=== PATIENT | female | born 1975 | race Caucasian/White ===

== ENCOUNTER 2017-05-19 05:33 | Emergency (ER) | payer OTHER ==
[2017-05-19 06:33] VITALS: BMI 25.9
[2017-05-19 07:37] LABS: BASO # 0.1 #; BASO % 0.6 % (0-2.0); EOS % 0.5 % (0-4.5); LYMPH # 1.4; MCH 28.9 pg (25.7-33.7); MCHC 32.5 g/dl (32.0-36.0); MEAN CELL VOLUME 89.1 fl (80-96); MEAN PLT VOLUME 7.8 fl (7.5-11.1); MONO # 0.7 #; NEUT # 7.1 #; NEUT % 75.8 % (42.8-82.8); PLATELET COUNT 383 K/MM3 (134-434); RDW 15.4 % (11.6-15.6); WHITE BLOOD COUNT 9.4 K/mm3 (4.0-10.0)
[2017-05-19] MEDS ORDERED: ONDANSETRON 4 MG/2 ML VIAL IVPUSH ONE (08:15)
[2017-05-19] MEDS ORDERED: ACETAMINOPHEN INJECTION 100 ML IVPB ONE (08:15)
[2017-05-19] MEDS ORDERED: ACETAMINOPHEN 1000 MG/100 ML VIAL (NON FORMULARY) IVPB ONE (08:15)
[2017-05-19] MEDS ORDERED: ONDANSETRON 4 MG/2 ML VIAL ONE (08:16)
[2017-05-19 08:29] LABS: URINE APPEARANCE CLOUDY; URINE BILIRUBIN NEGATIVE (NEGATIVE); URINE BLOOD 2+ (NEGATIVE); URINE COLOR YELLOW; URINE GLUCOSE (UA) NEGATIVE (NEGATIVE); URINE KETONE NEGATIVE (NEGATIVE); URINE LEUK ESTERASE NEGATIVE (NEGATIVE); URINE NITRITE NEGATIVE (NEGATIVE); URINE PROTEIN NEGATIVE (NEGATIVE); URINE UROBILINOGEN NEGATIVE mg/dL (0.2-1.0)
[2017-05-19 08:34] LABS: ALBUMIN 3.8 g/dl (3.4-5.0); ANION GAP 7 (8-16); CALCIUM 8.9 mg/dL (8.5-10.1); CO2 26 mmol/L (21-32); CREATININE 0.7 mg/dL (0.55-1.02); GLUCOSE,RANDOM 85 mg/dL (74-106); SGOT/AST 6 U/L (15-37); SGPT/ALT 18 U/L (12-78); TOT PROT 7.6 g/dl (6.4-8.2)
[2017-05-19 08:43] LABS: ALK PHOS 79 U/L (45-117); BILIRUBIN,TOTAL 0.5 mg/dL (0.2-1.0)
[2017-05-19 09:35] LABS: URINE BACTERIA MANY /hpf (NONE SEEN); URINE MUCUS RARE; URINE RBC 2 /hpf (0-3); URINE WBC 2 /hpf (3-5)
--- NOTE | 2017-05-19 09:44 | PDOC ---
*Physical Exam - Vital Signs Last Vital Signs Temp Pulse Resp BP Pulse Ox 97.7 F 68 14 127/89 100 05/19/17 06:18 05/19/17 06:18 05/19/17 06:18 05/19/17 06:18 05/19/17 06:18 ED Treatment Course - LABORATORY CBC & Chemistry Diagram: 05/19/17 07:30 05/19/17 07:30 - ADDITIONAL ORDERS Additional order review: Laboratory Results 05/19/17 05/19/17 07:50 07:30 Sodium 140 Potassium 4.2 Chloride 107 Carbon Dioxide 26 Anion Gap 7 L BUN 9 Creatinine 0.7 Creat Clearance w eGFR > 60 Random Glucose 85 Calcium 8.9 Total Bilirubin 0.5 AST 6 L ALT 18 Alkaline Phosphatase 79 Total Protein 7.6 Albumin 3.8 Urine Color Yellow Urine Appearance Cloudy Urine pH 5.0 Ur Specific [place] 1.017 Urine Protein Negative Urine Glucose (UA) Negative Urine Ketones Negative Urine Blood 2+ H Urine Nitrite Negative Urine Bilirubin Negative Urine Urobilinogen Negative Urine HCG, Qual Negative 05/19/17 07:30 RBC 5.14 MCV 89.1 MCHC 32.5 RDW 15.4 MPV 7.8 Neutrophils % 75.8 Lymphocytes % 15.2 Monocytes % 7.9 Eosinophils % 0.5 Basophils % 0.6 - Medications Given in the ED: ED Medications Discontinued Medications Generic Name Dose Route Start Last Admin Trade Name Flavioq PRN Reason Stop Dose Admin Acetaminophen 1,000 mg 05/19/17 08:15 05/19/17 08:26 Ofirmev Injection - IVPB 05/19/17 08:16 1,000 mg ONCE ONE Administration Ondansetron HCl 4 mg 05/19/17 08:15 05/19/17 08:26 Zofran Injection IVPUSH 05/19/17 08:16 4 mg ONCE ONE Administration Medical Decision Making - Medical Decision Making 05/19/17 09:37 Pt seen by the Advanced Practice Provider under my direct supervision Pt interviewed and examined Ancillary studies reviewed I agree with plan as outlined by the Advanced Practice Provider KRISTIN Colvin 42-year-old female with past medical history of endometriosis presents to emergency department for several years of intermittent abdominal pain. Patient reports a vague dull lower abdominal pain that comes and goes. Patient has had a hysterectomy sometime ago for her endometriosis. Does report some nausea and some constipation but denies any fevers or chills. Patient's currently in the transition of care from [place] to [place]. Because of recurrence of pain, she came to the ED. Patient's examination demonstrates tenderness to right lower quadrant. I suspect this is likely chronic pain. May potentially be endometriosis. However , we'll rule out other pathology such as bowel obstruction. Labs, CAT scan, UA. If workup is negative, and patient is feeling better, will give referral to a GI /CREATIVE WRITING ENGLISH PROFESSOR specialist.
--- NOTE | 2017-05-19 11:03 | PDOC ---
History of Present Illness - General Chief Complaint: Pain, Acute Stated Complaint: PAIN LOWER RIGHT SIDE BACK Time Seen by Provider: 05/19/17 05:35 Past History - Past Medical History Allergies/Adverse Reactions: Allergies Allergy/AdvReac Type Severity Reaction Status Date / Time No Known Allergies Allergy Verified 05/19/17 06:17 Home Medications: Ambulatory Orders Ondansetron [Zofran *Odt*] 8 mg SL BID PRN 05/19/17 Pantoprazole Sodium 40 mg PO DAILY 05/19/17 Ranitidine HCl [Zantac] 150 mg PO DAILY 05/19/17 COPD: No - Suicide/Smoking/Psychosocial Hx Smoking History: Current some day smoker Number of Cigarettes Smoked Daily: 3 Information on smoking cessation initiated: No Hx Alcohol Use: No Drug/Substance Use Hx: No Substance Use Type: None *Physical Exam - Vital Signs Last Vital Signs Temp Pulse Resp BP Pulse Ox 97.7 F 68 14 127/89 100 05/19/17 06:18 05/19/17 06:18 05/19/17 06:18 05/19/17 06:18 05/19/17 06:18 ED Treatment Course - LABORATORY CBC & Chemistry Diagram: 05/19/17 07:30 05/19/17 07:30 - ADDITIONAL ORDERS Additional order review: Laboratory Results 05/19/17 05/19/17 07:50 07:30 Sodium 140 Potassium 4.2 Chloride 107 Carbon Dioxide 26 Anion Gap 7 L BUN 9 Creatinine 0.7 Creat Clearance w eGFR > 60 Random Glucose 85 Calcium 8.9 Total Bilirubin 0.5 AST 6 L ALT 18 Alkaline Phosphatase 79 Total Protein 7.6 Albumin 3.8 Urine Color Yellow Urine Appearance Cloudy Urine pH 5.0 Ur Specific [place] 1.017 Urine Protein Negative Urine Glucose (UA) Negative Urine Ketones Negative Urine Blood 2+ H Urine Nitrite Negative Urine Bilirubin Negative Urine Urobilinogen Negative Urine WBC (Auto) 2 Urine RBC (Auto) 2 Ur Epithelial Cells Few Urine Bacteria Many Urine Mucus Rare Urine HCG, Qual Negative 05/19/17 07:30 RBC 5.14 MCV 89.1 MCHC 32.5 RDW 15.4 MPV 7.8 Neutrophils % 75.8 Lymphocytes % 15.2 Monocytes % 7.9 Eosinophils % 0.5 Basophils % 0.6 - RADIOLOGY Radiology Studies Ordered: Category Date Time Status ABDOMEN & PELVIS CT WITH CONTR [CT] Stat CT Scan 05/19/17 08:38 Completed - Medications Given in the ED: ED Medications Discontinued Medications Generic Name Dose Route Start Last Admin Trade Name Sabrina PRN Reason Stop Dose Admin Acetaminophen 1,000 mg 05/19/17 08:15 05/19/17 08:26 Ofirmev Injection - IVPB 05/19/17 08:16 1,000 mg ONCE ONE Administration Ondansetron HCl 4 mg 05/19/17 08:15 05/19/17 08:26 Zofran Injection IVPUSH 05/19/17 08:16 4 mg ONCE ONE Administration *DC/Admit/Observation/Transfer Diagnosis at time of Disposition: Abdominal pain Qualifiers: Abdominal location: generalized Qualified Code(s): R10.84 - Generalized abdominal pain - Discharge Dispostion Disposition: HOME Condition at time of disposition: Stable Admit: No - Referrals Referrals: Sixto Bui MD [Staff Physician] - Teagan Mcgraw DO [Staff Physician] - Doroteo Mojica MD [Staff Physician] - Jacinto Zavaleta MD [Staff Physician] - - Patient Instructions Printed Discharge Instructions: DI for Abdominal Pain-Adult Additional Instructions: Your CT scan was normal today. Please follow up with your doctor who preformed your hysterectomy. You were given referrals for primary care, gastroenterology and LOANS OFFICER today. Please follow up with these doctors. You may take Tylenol as needed for pain. You may take 650mg every 4 hours. Do not exceed taking 4,000mg a day. Return to the ED if your pain gets worse, if you have fevers, chills, nausea, vomiting or have any changes in your symptoms. - Post Discharge Activity
[2017-05-19 11:28] VITALS: BP 138/90; PULSE 81; TEMP 98.1
[2017-05-19 19:12] LABS: URINE LEUK ESTERASE Negative (NEGATIVE)
== END 2017-05-19 11:29 | disposition home or self-care (01) ==
LOC: JER 05:33
PROC: 3E033NZ Introduction of Analgesics, Hypnotics, Sedatives into Peripheral Vein, Percutaneous Approach (ICD-10-PCS; principal; 2017-05-19)
PROC: 3E033GC Introduction of Other Therapeutic Substance into Peripheral Vein, Percutaneous Approach (ICD-10-PCS; 2017-05-19)
DX: R10.84 Generalized abdominal pain (principal); Z72.0 Tobacco use
CPT/HCPCS: 36415; 74177-TC; 80053; 81003; 81015; 84703; 85025; 87086; 99283-25

== ENCOUNTER 2018-02-20 12:58 | Emergency (ER) | payer OTHER ==
[2018-02-20 13:04] VITALS: BP 109/83; PULSE 85; TEMP 98.8; BMI 25.8
--- NOTE | 2018-02-20 14:03 | PDOC ---
Attending Attestation - Resident Resident Name: Wesley Simpson - ED Attending Attestation I have performed the following: I have examined & evaluated the patient, The case was reviewed & discussed with the resident, I agree w/resident's findings & plan, Exceptions are as noted - HPI HPI: 02/20/18 14:12 42y F hx of cyclical vomiting syndrome, endometriosis s/p partial hysterectomy ( 2016), presents with 3 days of intermittetn cramping, pubic pain that radiates towards her rectum. Pain is consistent with her previous endometriosis pain, but notes it is much worse than usual. Pt notes that even after the hysterectomy , she has been having similar episodes of cramping suprapubic pain on a monthly basis but this is more severe. The pt denies any fever/chills, vaginal bleeding , back pain, cp, sob. Pt endorses nausea with is consistent with her typical CVS No local pmd/spiritual counselor( has doctors in [place]) GENERAL: The patient is awake, alert, and fully oriented, appears uncomfortable HEAD: Normocephalic, atraumatic. EYES: extraocular movements intact, sclera anicteric, conjunctiva clear. ENT: Normal voice, Moist mucous membranes. ABDOMEN: Soft, mild suprapubic tenderness, normoactive bowel sounds. No guarding, no rebound. No CVA tenderness EXTREMITIES: Normal range of motion, no edema. No clubbing or cyanosis. No cords, erythema, or tenderness. NEUROLOGICAL: No facial assymetry, Normal speech, moving all 4 extreities spontaneously and symmetricaly Suspect that her pain is secondary to endometriosis the patient notes that he should history of ulcers and cannot take NSAIDs. Dorsal is taking Tylenol for her pain earlier without significant improvement. will ck labs, UA will give pt morphine will reassess - Medical Decision Making 02/20/18 19:52 pts albs reviewd UA +blood will ck CT to r/o kidney stone case signed out to evening team to fu with results and reassess pt
--- NOTE | 2018-02-20 14:19 | PDOC ---
History of Present Illness - General Chief Complaint: Pain Stated Complaint: ABD PAIN Time Seen by Provider: 02/20/18 14:02 - History of Present Illness Initial Comments: The patient is a 42F w/ a history of endometriosis (s/p partial hys), PUD, and cyclic vomiting syndrome who presents for evaluation of 3 days of intermittent, suprapubic, cramping abdominal pain. The patient denies associated fever/chills , dysuria, hematuria, or blood in her stool. The patient states that the pain is similar to the pain she had prior to her partial hysterectomy. The patient has tried taking Tylenol today for her pain with little relief. She states she is not able to take NSAIDs 2/2 PUD. Additionally, the patient reports a history of difficulty passing stools. She reports a chronic issue of feeling the urge to go but will have trouble relaxing enough to pass stool. She states enemas have not helped in the past. She reports usually only being able to pass stool when she has vomiting episodes (approximately 1-2 times weekly) 02/20/18 14:17 02/20/18 16:44 Past History - Past Medical History Allergies/Adverse Reactions: Allergies Allergy/AdvReac Type Severity Reaction Status Date / Time No Known Allergies Allergy Verified 02/20/18 13:01 Home Medications: Ambulatory Orders Ondansetron [Zofran *Odt*] 8 mg SL BID PRN 05/19/17 Pantoprazole Sodium 40 mg PO DAILY 05/19/17 Ranitidine HCl [Zantac] 150 mg PO DAILY 05/19/17 COPD: No Other medical history: endometreosis, vomiting syndrome - Immunization History Immunization Up to Date: Yes - Suicide/Smoking/Psychosocial Hx Smoking History: Current some day smoker Number of Cigarettes Smoked Daily: 5 Information on smoking cessation initiated: No 'Breaking Loose' booklet given: 07/15/17 Hx Alcohol Use: No Drug/Substance Use Hx: No Substance Use Type: None Review of Systems - Review of Systems Able to Perform ROS?: Yes Comments:: GENERAL/CONSTITUTIONAL: No fever or chills HEAD, EYES, EARS, NOSE AND THROAT: No change in vision. No ear pain or discharge. No sore throat CARDIOVASCULAR: No chest pain or shortness of breath RESPIRATORY: No cough, wheezing, or hemoptysis GASTROINTESTINAL: +chronic N/V; +chronic constipation; Denies blood in stool GENITOURINARY: No dysuria, frequency, or change in urination MUSCULOSKELETAL: No joint or muscle swelling or pain. No neck or back pain SKIN: No rash NEUROLOGIC: No headache, vertigo, loss of consciousness ENDOCRINE: No increased thirst. No abnormal weight change HEMATOLOGIC/LYMPHATIC: No anemia, easy bleeding, or history of blood clots ALLERGIC/IMMUNOLOGIC: No hives or skin allergy 02/20/18 22:04 Is the patient limited Cymro proficient: No *Physical Exam - Vital Signs Last Vital Signs Temp Pulse Resp BP Pulse Ox 98.8 F 85 18 109/83 100 02/20/18 13:02 02/20/18 13:02 02/20/18 13:02 02/20/18 13:02 02/20/18 13:02 - Physical Exam Comments: GENERAL: Awake, alert, and fully oriented, in no acute distress HEAD: No signs of trauma, normocephalic, atraumatic EYES: PERRL, EOMI, sclera anicteric, conjunctiva clear ENT: Hearing grossly normal, nares patent, oropharynx clear without exudates. Moist mucosa NECK: Normal ROM, supple LUNGS: No distress, speaks full sentences, clear to auscultation bilaterally HEART:Regular rate and rhythm, normal S1 and S2, no murmurs appreciated, peripheral pulses normal and equal bilaterally ABDOMEN: Soft, lower abdominal TTP most significant at midline-suprapubic; normoactive bowel sounds. No guarding, no rebound EXTREMITIES : Normal inspection, Normal range of motion, no edema. No clubbing or cyanosis NEUROLOGICAL: Cranial nerves II through XII grossly intact. Normal speech, normal gait, no focal sensorimotor deficits SKIN: Warm, Dry 02/20/18 14:59 ED Treatment Course - LABORATORY CBC & Chemistry Diagram: 02/20/18 14:34 02/20/18 14:34 Medical Decision Making - Medical Decision Making The patient is a 42F w/ a history of endometriosis (s/p partial hys), PUD, and cyclic vomiting syndrome presenting for evaluation for 3 days of intermittent, cramping suprapubic pain that the patient reports being similar to her previous endometriosis pain Ddx: recurrent endometriosis v cystitis v ED Course CMP, CBC, UA Patient took 8 tylenol for pain earlier today Will give oxycodone 5mg PO once for pain Patient describes pain as the same as her previous endometriosis pain No vaginal bleeding, no dysuria, no lateralization of pain, no fevers No imaging indicated at this time. Suspect recurrence of endometriosis 02/20/18 14:42 Morphine 4mg IV once for pain 02/20/18 15:16 Patient endorses epigastric discomfort with associated 'queasiness' Will give Maalox and lidocaine PO for symptomatic relief Pending UA 02/20/18 16:33 No leukocytosis Lytes wnl Pain better controlled at this time. Patient no longer tearful 02/20/18 16:44 Patient's pain recurred. Will give Morphine 2mg IV once CT spiral to r/o nephrolithiasis (UA positive for blood) -Neg for stone -+ for heavy stool burden -Neg for acute intra-abdominal pathology Plan for D/C w/ OBGYN f/u Referral for OB given Discussed at length need for patient to follow up with OBGYN Plan discussed w/ patient who is in agreement and verbalized understanding Pain controlled at this time Dispo: Home 02/20/18 22:00 *DC/Admit/Observation/Transfer Diagnosis at time of Disposition: Abdominal pain Qualifiers: Abdominal location: lower abdomen, unspecified Qualified Code(s): R10.30 - Lower abdominal pain, unspecified - Discharge Dispostion Condition at time of disposition: Stable Decision to Admit order: No - Referrals Referrals: [facility] [place] [Provider Group] Freda Quintero MD [Primary Care Provider] - Yi Castillo MD [Staff Physician] - - Patient Instructions Printed Discharge Instructions: DI for Endometriosis, DI for Pelvic Pain Additional Instructions: You were seen today in the Emergency Room for pelvic pain. Please review the handouts provided at discharge. Please follow up with an OBGYN this week. You were given referral information in your discharge paperwork. Return to the Emergency Room if you have worsening of your symptoms, vaginal bleeding, fevers , burning with urination, blood in your urine, or any new/concerning symptoms. - Post Discharge Activity
[2018-02-20] MEDS ORDERED: ACETAMINOPHEN 325 MG TABLET (FP) PO ONE (14:20)
[2018-02-20] MEDS ORDERED: ACETAMINOPHEN 325 MG TABLET (FP) ONE (14:37)
[2018-02-20] MEDS ORDERED: oxyCODONE HCL 5 MG TABLET PO ONE (14:41)
[2018-02-20] MEDS ORDERED: oxyCODONE HCL 5 MG TABLET ONE (14:42)
[2018-02-20 14:44] LABS: BASO % 0.5 % (0-2.0); EOS % 0.3 % (0-4.5); HEMATOCRIT 46.2 % (32.4-45.2); HEMOGLOBIN 14.9 GM/dL (10.7-15.3); LYMPH % 18.7 % (8-40); MCH 28.6 pg (25.7-33.7); MCHC 32.2 g/dl (32.0-36.0); MEAN CELL VOLUME 88.8 fl (80-96); MEAN PLT VOLUME 7.6 fl (7.5-11.1); MONO % 6.8 % (3.8-10.2); NEUT % 73.7 % (42.8-82.8); PLATELET COUNT 363 K/MM3 (134-434); RBC 5.21 M/mm3 (3.60-5.2); RDW 15.3 % (11.6-15.6); WHITE BLOOD COUNT 8.4 K/mm3 (4.0-10.0)
[2018-02-20] MEDS ORDERED: morphine CARPU-JECT 4 MG/1 ML DISP.SYRIN IVPUSH ONE ×2 (15:04→18:58)
[2018-02-20 15:07] LABS: ALBUMIN 4.3 g/dl (3.4-5.0); ALK PHOS 74 U/L (45-117); ANION GAP 7 MMOL/L (8-16); BILIRUBIN,TOTAL 0.4 mg/dL (0.2-1); BLOOD UREA NITROGEN 9 mg/dL (7-18); CALCIUM 9.4 mg/dL (8.5-10.1); CHLORIDE 109 mmol/L (98-107); CO2 27 mmol/L (21-32); CREATININE 0.7 mg/dL (0.55-1.3); GLUCOSE,RANDOM 92 mg/dL (74-106); POTASSIUM 4.3 mmol/L (3.5-5.1); SGOT/AST 12 U/L (15-37); SGPT/ALT 22 U/L (13-61); SODIUM 143 mmol/L (136-145)
[2018-02-20] MEDS ORDERED: morphine SULFATE 4 MG/ML VIAL ONE (15:27)
[2018-02-20] MEDS ORDERED: LIDOCAINE VISCOUS 2% ORAL/TOP 20 ML UNIT-DOSE CUP MM ONE ×2 (16:32→17:50)
[2018-02-20] MEDS ORDERED: MAG HYDROX/AL HYDROX/SIMETH 30 ML UNIT-DOSE CUP PO ONE ×2 (16:32→17:49)
[2018-02-20] MEDS ORDERED: MAG HYDROX/AL HYDROX/SIMETH 30 ML UNIT-DOSE CUP ONE ×2 (17:04→17:51)
[2018-02-20] MEDS ORDERED: LIDOCAINE VISCOUS 2% ORAL/TOP 20 ML UNIT-DOSE CUP ONE ×2 (17:04→17:51)
[2018-02-20 17:53] LABS: URINE APPEARANCE SLCLOUDY; URINE BILIRUBIN NEGATIVE (<2.0 mg/dL); URINE COLOR AMBER; URINE GLUCOSE (UA) NEGATIVE (NEGATIVE); URINE KETONE TRACE (NEGATIVE); URINE LEUK ESTERASE NEGATIVE (NEGATIVE); URINE NITRITE NEGATIVE (NEGATIVE)
[2018-02-20 17:59] LABS: URINE PROTEIN 1+ (NEGATIVE)
[2018-02-20 18:35] LABS: CALCIUM OXALATE CRYSTALS RARE /hpf (NONE SEEN); EPI CELLS FEW /HPF (FEW); URINE BACTERIA RARE /hpf (NONE SEEN); URINE MUCUS MANY
[2018-02-20] MEDS ORDERED: traMADol HCL 50 MG TABLET PO ONE (18:41)
[2018-02-20] MEDS ORDERED: ONDANSETRON 4 MG/2 ML VIAL IVPUSH ONE (18:42)
[2018-02-20] MEDS ORDERED: MORPHINE SULFATE 2 MG/ML VIAL ONE (19:28)
[2018-02-20] MEDS ORDERED: ONDANSETRON 4 MG/2 ML VIAL ONE (19:28)
== END 2018-02-20 21:48 | disposition home or self-care (01) ==
LOC: JER 12:58
PROC: 3E033NZ Introduction of Analgesics, Hypnotics, Sedatives into Peripheral Vein, Percutaneous Approach (ICD-10-PCS; principal; 2018-02-20)
PROC: 3E033NZ Introduction of Analgesics, Hypnotics, Sedatives into Peripheral Vein, Percutaneous Approach (ICD-10-PCS; 2018-02-20)
PROC: 3E033GC Introduction of Other Therapeutic Substance into Peripheral Vein, Percutaneous Approach (ICD-10-PCS; 2018-02-20)
DX: R10.30 Lower abdominal pain, unspecified (principal); F11.10 Opioid abuse, uncomplicated; Z87.19 Personal history of other diseases of the digestive system; F17.210 Nicotine dependence, cigarettes, uncomplicated
CPT/HCPCS: 36415; 74176; 80053; 81003; 81015; 85025; 85027; 99281-25